=== PATIENT | female | born 1965 | race Hispanic/Latino ===

== ENCOUNTER 2019-04-09 12:33 | Emergency (ER) | payer SELFPAY ==
--- NOTE | 2019-04-09 13:43 | XRay Report ---
CHEST 1 VIEW INDICATION: sob. COMPARISON: 04/08/2016 FINDINGS: Support devices: None. Heart: Within normal limits. Pulmonary vasculature: Normal. Lungs/Pleura: The lungs are hyperexpanded and hyperlucent. Mild streaky opacities in the left lung ba se are unchanged compared to the prior exam. No airspace disease or pleural effusion. Additional findings: None. IMPRESSION: COPD and no acute cardiopulmonary process. Signer Name: Uche Reyes MD Signed: 04/09/2019 1:38 PM Workstation Name: [id number]
--- NOTE | 2019-04-09 14:08 | Emergency Department Report ---
ED Shortness of Breath HPI - General Chief Complaint: Dyspnea/Respdistress Stated Complaint: RUSSEL Time Seen by Provider: 04/09/19 13:09 Source: EMS Mode of arrival: Stretcher Limitations: No Limitations - History of Present Illness Initial Comments: 54-year-old female with history of anxiety, COPD presents to ED with shortness of breath. Patient has history of COPD, but feels that this shortness of breath secondary to anxiety attack. EMS was called, albuterol, Solu-Medrol, mag sulfate were given. Patient is chronically on 3 L O2 at home. Patient states she is still much better at this time. Complaint: shortness of breath -: This afternoon Severity: moderate Consistency: now resolved Improves With: oxygen, rest, bronchodilators Known History Of: COPD Treatments Prior to Arrival: oxygen, bronchodilator - Related Data Home Oxygen Therapy: Yes Home Oxygen Amount: 3 Liters Previous Rx's Medication Instructions Recorded Last Taken Type Albuterol Sulfate [Proventil Hfa] 2 puff IH Q4HR PRN #1 hfa.aer.ad 04/09/19 Unknown Rx predniSONE [Deltasone] 50 mg PO QDAY #5 tab 04/09/19 Unknown Rx Allergies Allergy/AdvReac Type Severity Reaction Status Date / Time clarithromycin [From Biaxin] Allergy Hives/WHELPS, Unverified 05/17/14 13:18 FEELS LIKE THROAT CLOSES UP diphenhydramine HCl Allergy Itching Unverified 04/08/16 10:37 [From Benadryl] meperidine HCl [From Demerol] Allergy Hives/ITCH Unverified 05/17/14 13:16 promethazine HCl Allergy Itching Unverified 04/08/16 10:36 [From Phenergan] ED Review of Systems ROS: Stated complaint: RUSSEL Other details as noted in HPI Comment: All other systems reviewed and negative Respiratory: shortness of breath Cardiovascular: denies: chest pain Psychiatric: anxiety ED Past Medical Hx - Past Medical History Hx Asthma: Yes Hx COPD: Yes Additional medical history: anxiety - Social History Smoking Status: Current Every Day Smoker Substance Use Type: None - Medications Home Medications: Home Medications Medication Instructions Recorded Confirmed Last Taken Type Albuterol Sulfate [Proventil Hfa] 2 puff IH Q4HR PRN #1 hfa.aer.ad 04/09/19 Unknown Rx predniSONE [Deltasone] 50 mg PO QDAY #5 tab 04/09/19 Unknown Rx ED Physical Exam - General Limitations: No Limitations General appearance: alert, in no apparent distress, other (appears frail) - Head Head exam: Present: atraumatic, normocephalic - Eye Eye exam: Present: normal appearance - ENT ENT exam: Present: mucous membranes moist - Neck Neck exam: Present: normal inspection - Respiratory Respiratory exam: Present: normal lung sounds bilaterally. Absent: respiratory distress - Cardiovascular Cardiovascular Exam: Present: regular rate, normal rhythm - GI/Abdominal GI/Abdominal exam: Present: soft. Absent: distended, tenderness - Extremities Exam Extremities exam: Present: normal inspection - Neurological Exam Neurological exam: Present: alert, oriented X3 - Psychiatric Psychiatric exam: Present: normal affect, normal mood - Skin Skin exam: Present: warm, dry, intact, normal color ED Course Vital Signs 04/09/19 04/09/19 04/09/19 12:43 12:45 12:49 Temperature 98.1 F Pulse Rate 99 H Respiratory 18 Rate Blood Pressure 122/97 125/100 Blood Pressure 125/100 [Left] O2 Sat by Pulse 93 94 Oximetry 04/09/19 04/09/19 04/09/19 13:00 13:15 13:30 Temperature Pulse Rate 96 H 101 H 106 H Respiratory 18 28 H 20 Rate Blood Pressure 120/92 120/93 122/92 Blood Pressure [Left] O2 Sat by Pulse 99 92 95 Oximetry 04/09/19 04/09/19 04/09/19 13:45 14:00 14:15 Temperature Pulse Rate 102 H 102 H 95 H Respiratory 20 25 H 20 Rate Blood Pressure 119/93 120/92 126/92 Blood Pressure [Left] O2 Sat by Pulse 92 91 91 Oximetry 04/09/19 04/09/19 04/09/19 14:30 14:45 15:00 Temperature Pulse Rate 103 H 98 H 97 H Respiratory 24 19 19 Rate Blood Pressure 127/98 123/96 130/95 Blood Pressure [Left] O2 Sat by Pulse 92 97 98 Oximetry 04/09/19 15:15 Temperature 98.4 F Pulse Rate 79 Respiratory 19 Rate Blood Pressure Blood Pressure 128/77 [Left] O2 Sat by Pulse 100 Oximetry ED Medical Decision Making - Radiology Data Radiology results: report reviewed, image reviewed - Medical Decision Making 54-year-old female with COPD exacerbation likely exacerbated by an anxiety attack. Patient received albuterol nebs, Solu-Medrol, magnesium sulfate from EMS. Upon ED arrival patient feeling much better. Patient was placed on her normal 3 L O2, patient had normal O2 sats. Chest x-ray unremarkable for any abnormal findings. Patient felt much better at this time and feels able to be discharged home. Outpatient follow-up advised. Return precautions given. - Differential Diagnosis anxiety, COPD, pneumonia Critical care attestation.: If time is entered above; I have spent that time in minutes in the direct care of this critically ill patient, excluding procedure time. ED Disposition Clinical Impression: COPD with acute exacerbation, Anxiety Disposition: TO HOME OR SELFCARE Is pt being admited?: No Condition: Stable Instructions: Chronic Obstructive Pulmonary Disease (ED), Anxiety (ED) Prescriptions: predniSONE [Deltasone] 50 mg PO QDAY #5 tab Albuterol Sulfate [Proventil Hfa] 2 puff IH Q4HR PRN #1 hfa.aer.ad PRN Reason: Wheezing Referrals: PRIMARY CARE, [Referring] - 3-5 Days Time of Disposition: 14:26
[2019-04-09 16:15] VITALS: BP 128/77
== END 2019-04-09 15:15 | disposition home or self-care (01) ==
LOC: ED 12:33
DX: J44.1 Chronic obstructive pulmonary disease with (acute) exacerbation (principal); F41.9 Anxiety disorder, unspecified; F17.200 Nicotine dependence, unspecified, uncomplicated; Z88.1 Allergy status to other antibiotic agents
CPT/HCPCS: 71045

== ENCOUNTER 2019-04-23 07:46 | Outpatient (CLI) | payer OTHER ==
[2019-04-23] MEDS ORDERED: PROVENTIL IH ONE (08:45)
== END 2019-04-23 07:47 | disposition home or self-care (01) ==
LOC: PF 07:46
PROVIDERS: ATTEND Internal Medicine
DX: J44.9 Chronic obstructive pulmonary disease, unspecified (principal)
CPT/HCPCS: 94060; 94640; 94729

== ENCOUNTER 2019-05-04 05:47 | Observation (INO) | payer SELFPAY ==
--- NOTE | 2019-05-04 07:18 | XRay Report ---
CHEST 1 VIEW INDICATION / CLINICAL INFORMATION: Dyspnea. COMPARISON: 04/09/2019 FINDINGS: SUPPORT DEVICES: None. HEART / MEDIASTINUM: No significant abnormality. LUNGS / PLEURA: Emphysema. No evidence of pneumonia. Signer Name: Thaddeus Ricardo MD Signed: 05/04/2019 7:14 AM Workstation Name: [id number]
[2019-05-04 08:04] LABS: Basophils % (Auto) 0.7 % (0.0-1.8); Eosinophils % (Auto) 0.4 % (0.0-4.3); Hematocrit 38.8 % (30.3-42.9); Hemoglobin 13.4 gm/dl (10.1-14.3); Lymphocytes # (Auto) 2.1 K/mm3 (1.2-5.4); Lymphocytes % (Auto) 37.6 % (13.4-35.0); Mean Corpuscular HGB Conc 35 % (30-34); Mean Corpuscular Volume 92 fl (79-97); Monocytes # (Auto) 0.2 K/mm3 (0.0-0.8); Monocytes % (Auto) 4.4 % (0.0-7.3); Platelet Count 288 K/mm3 (140-440); Red Blood Count 4.21 M/mm3 (3.65-5.03); Red Cell Distribution Width 13.8 % (13.2-15.2)
[2019-05-04 08:13] LABS: INR 0.97 (0.87-1.13); Partial Thromboplastin Time 29.8 Sec. (24.2-36.6)
[2019-05-04] MEDS ORDERED: IPRATROPIUM/ALBUTEROL SULFATE 3 ML AMPUL.NEB IH ONE (08:22)
[2019-05-04 08:27] LABS: BUN/Creatinine Ratio 16; Blood Urea Nitrogen 8 mg/dL (7-17); Calcium 9.1 mg/dL (8.4-10.2); Creatine Kinase MB 3.1 ng/mL (0.0-4.0); Hemolysis Index 1
[2019-05-04 08:29] LABS: Albumin 3.9 g/dL (3.9-5)
[2019-05-04 08:49] LABS: Alanine Aminotransferase < 5 units/L (7-56); Bilirubin,Direct < 0.2 mg/dL (0-0.2)
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
[2019-05-04] MEDS ORDERED: ASPIRIN 81 MG TAB CHEW PO ONE (09:34)
[2019-05-04 11:03] LABS: Amphetamine Screen,Urine PRESUMPTIVE NEGATIVE; Benzodiazepines Screen,Urine PRESUMPTIVE NEGATIVE; Cannabinoid Screen,Urine PRESUMPTIVE NEGATIVE; Cocaine Screen,Urine PRESUMPTIVE NEGATIVE; Methadone Screen,Urine PRESUMPTIVE NEGATIVE; Opiate Screen,Urine PRESUMPTIVE NEGATIVE
[2019-05-04 11:05] LABS: Bilirubin,Urine Negative (Negative); Blood,Urine Trace (Negative); Color,Urine Yellow (Yellow)
[2019-05-04 11:10] LABS: Bacteria,Urine 3+ /HPF (Negative); Mucus,Urine FEW /HPF
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
--- NOTE | 2019-05-04 11:52 | Cat Scan Report ---
CTA CHEST WITH IV CONTRAST INDICATION: cp elevated dimer. TECHNIQUE: Axial CT images were obtained through the chest after injection of IV contrast. 3 plane MIP reconstru ctions were produced. All CT scans at this location are performed using CT dose reduction for ALARA b y means of automated exposure control. COMPARISON: None available. FINDINGS: Pulmonary Arteries: No pulmonary emboli. Thoracic Aorta: No acute abnormality. Heart: Mild cardiomegaly. No pericardial effusion. Coronary Arteries: No significant calcification. Lungs: Emphysematous changes are noted. There appears to be superimposed interstitial edema. Within t he medial left lower lobe posteriorly, there is a subpleural 1.1 x 0.9 cm noncalcified nodule (axial series 3 image 160). There is a punctate 3 mm noncalcified nodule in the left lower lobe on image 223 . There is complete right middle lobe atelectasis. Pleura: No pleural effusion. No pneumothorax. Lymph Nodes: No significant adenopathy. Additional Findings: None. Upper Abdomen: No acute findings. Skeletal Structures: No significant osseous abnormality. IMPRESSION: 1. No CT evidence for pulmonary embolism. 2. Emphysematous changes are noted throughout both lungs. Increased interstitial markings suggest the re may be superimposed interstitial pulmonary edema. 3. 1.1 cm noncalcified subpleural nodular density in the medial posterior left lower lobe. See below for follow-up recommendations. 4. There is complete right middle lobe atelectasis/collapse. No definite central airway obstructing l esion is seen. If this persists on follow-up imaging, bronchoscopy should be considered. INCIDENTAL PULMONARY NODULE RECOMMENDATIONS Solid Nodule size >8 mm -- Single - Low Risk or High Risk Patient: Consider CT at 3 months, PET/CT, or tissue sampling Note These recommendations do not apply to lung cancer screening, patients with immunosuppression, o r patients with known primary cancer. Note Newly detected indeterminate nodule in persons 35 years of age or older. Persons under the age of 35 should not receive follow-up unless there is a known primary cancer. Low Risk Patient -- minimal or absent history of smoking and of other known risk factors. High Risk Patient -- history of smoking or of other known risk factors. Nodule dimensions are average of long and short axes, rounded to the nearest millimeter. Based on 2017 Fleischner Society Guidelines found in Radiology 2017 284:228-243. [email or web address] Signer Name: Vito Mattson MD Signed: 05/04/2019 11:48 AM Workstation Name: [id number]
[2019-05-04] MEDS ORDERED: ALBUTEROL 2.5 MG/3 ML NEBU IH PRN (13:11)
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
[2019-05-04] MEDS ORDERED: ALBUTEROL 2.5 MG/3 ML NEBU IH SCH (14:00)
[2019-05-04] MEDS ORDERED: IPRATROPIUM/ALBUTEROL SULFATE 3 ML AMPUL.NEB IH SCH ×2 (14:00→20:00)
[2019-05-04] MEDS ORDERED: methylPREDNISolone Sod Succinate 40 MG/1 ML INJ IV SCH (14:00)
[2019-05-04 17:08] VITALS: BP 142/96
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
[2019-05-04] MEDS ORDERED: ARFORMOTEROL 15 MCG/2 ML NEBU IH SCH (20:00)
[2019-05-04] MEDS ORDERED: BUDESONIDE 0.5 MG/2 ML NEBU IH SCH (20:00)
[2019-05-04] MEDS ORDERED: ENOXAPARIN 40 MG/0.4 ML INJ SUB-Q SCH (22:00)
[2019-05-05] MEDS ORDERED: FLU VACC QUAD 2019-20 (3 YR UP)/PF 60 MCG/0.5 ML SYRINGE IM ONE (12:00)
== END 2019-05-04 18:58 | disposition home or self-care (01) ==
LOC: ED 05:47 → 4A 09:54 → INTOOBSV 09:54
PROVIDERS: ADMIT Internal Medicine; ATTEND Internal Medicine
DX: J44.1 Chronic obstructive pulmonary disease with (acute) exacerbation (principal); R07.89 Other chest pain; E43 Unspecified severe protein-calorie malnutrition; F41.9 Anxiety disorder, unspecified; F17.200 Nicotine dependence, unspecified, uncomplicated
CPT/HCPCS: 36415; 71045; 71275; 80048; 80076; 80307; 81001; 82140; 82550; 82553; 83735; 84484; 85025; 85379; 85610; 85730; 87086; 93005; 93010; 94640; 94644; 94760; 99284; G0378; Q9967

== ENCOUNTER 2019-11-02 01:12 | Emergency (ER) | payer SELFPAY ==
[2019-11-02 01:26] VITALS: BP 112/86
== END 2019-11-02 02:25 | disposition left against medical advice (07) ==
LOC: ED 01:12
DX: R06.00 Dyspnea, unspecified (principal); Z53.21 Procedure and treatment not carried out due to patient leaving prior to being seen by health care provider

== ENCOUNTER 2019-11-27 13:10 | Emergency (ER) | payer SELFPAY | END 2019-11-27 13:37 | disposition left against medical advice (07) | LOC: ED 13:10 | DX: R11.2 Nausea with vomiting, unspecified (principal); Z53.21 Procedure and treatment not carried out due to patient leaving prior to being seen by health care provider ==

== ENCOUNTER 2019-11-28 10:16 | Emergency (ER) | payer SELFPAY ==
[2019-11-28] MEDS ORDERED: IPRATROPIUM/ALBUTEROL SULFATE 3 ML AMPUL.NEB IH ONE (11:30)
[2019-11-28] MEDS ORDERED: predniSONE 20 MG TAB PO ONE (11:30)
--- NOTE | 2019-11-28 11:35 | Emergency Department Report ---
ED Psych HPI - General Chief Complaint: Medical Clearance Stated Complaint: NOT EATING Time Seen by Provider: 11/28/19 11:29 Source: patient Mode of arrival: Wheelchair - History of Present Illness Initial Comments: Patient is a 54-year-old female that comes to the emergency room seeking treatment for her alcohol abuse. She states that she started drinking 6 months ago and since then has been drinking liquor daily. She states that her last drink was this morning. Patient is a smoker and on home oxygen. She denies drugs. She states that her brother has encouraged her to get help and that he will pay for it. Patient has no prior inpatient treatment for alcohol or mental health issues. Patient denies SI. Patient denies HI. Denies auditory or visual hallu cinations. Patient's PCP is Dr. Whitney Patient checked into the ER yesterday but left before triage. -: Gradual, month(s) Associated Psychiatric Symptoms: depression History of same: No Context: recent alcohol abuse Associated Symptoms: denies other symptoms, shortness of breath (Chronic) Treatments Prior to Arrival: none - Related Data Allergies Allergy/AdvReac Type Severity Reaction Status Date / Time clarithromycin [From Biaxin] Allergy Hives/WHELPS, Unverified 05/17/14 13:18 FEELS LIKE THROAT CLOSES UP diphenhydramine HCl Allergy Itching Unverified 04/08/16 10:37 [From Benadryl] meperidine HCl [From Demerol] Allergy Hives/ITCH Unverified 05/17/14 13:16 promethazine HCl Allergy Itching Unverified 04/08/16 10:36 [From Phenergan] ED Review of Systems ROS: Stated complaint: NOT EATING Other details as noted in HPI Comment: All other systems reviewed and negative ED Past Medical Hx - Past Medical History Previous Medical History?: Yes Hx Asthma: Yes Hx COPD: Yes Additional medical history: anxiety, history of bowel obstruction, history of ch ronic back pain - Surgical History Past Surgical History?: Yes - Family History Family history: no significant - Social History Smoking Status: Current Every Day Smoker Substance Use Type: Alcohol ED Physical Exam - General Limitations: No Limitations General appearance: alert, in no apparent distress - Head Head exam: Present: atraumatic, normocephalic - Eye Eye exam: Present: normal appearance - ENT ENT exam: Present: mucous membranes moist - Neck Neck exam: Present: normal inspection - Respiratory Respiratory exam: Present: normal lung sounds bilaterally. Absent: respiratory distress - Cardiovascular Cardiovascular Exam: Present: regular rate, normal rhythm, tachycardia, other (Barrel chest consistent with COPD). Absent: systolic murmur, diastolic murmur, rubs, gallop - GI/Abdominal GI/Abdominal exam: Present: soft, normal bowel sounds - Extremities Exam Extremities exam: Present: normal inspection - Back Exam Back exam: Present: normal inspection - Neurological Exam Neurological exam: Present: alert, oriented X3 - Psychiatric Psychiatric exam: Present: normal affect, normal mood - Skin Skin exam: Present: warm, dry, intact, normal color. Absent: rash ED Course Vital Signs 11/28/19 11/28/19 10:47 12:48 Temperature 97.5 F L Pulse Rate 98 H Respiratory 28 H 19 Rate Blood Pressure 112/90 O2 Sat by Pulse 95 Oximetry - Reevaluation(s) Reevaluation #1: 11/28/19 11:34 Home medications Home oxygen 2 L gabapentin at night Combivent inhaler Albuterol nebulizer Reevaluation #2: 11/28/19 14:09 Mental health aware of pt presentation Reevaluation #3: 11/28/19 14:17 Per Meño in mental health given pt does not have comorbid psych symptoms and no insurance pt can be discharged with psych referrals. RN aware ED Medical Decision Making - Lab Data Result diagrams: 11/28/19 12:15 11/28/19 12:15 - Radiology Data Radiology results: report reviewed, image reviewed interpreted by me: farhat dougherty - Medical Decision Making Here requesting inpatient treatment of ETOH abuse Labs 11/28/19 11/28/19 11/28/19 12:15 12:15 12:15 WBC 3.6 L RBC 4.60 Hgb 15.3 H Hct 44.5 H MCV 97 MCH 33 H MCHC 34 RDW 13.9 Plt Count 61 L Lymph % (Auto) 28.6 [place] % (Auto) 3.5 Eos % (Auto) 0.2 Baso % (Auto) 0.2 Lymph # 1.0 L [place] # 0.1 Eos # 0.0 Baso # 0.0 Seg Neutrophils % 67.5 Seg Neutrophils # 2.5 PT 11.9 L INR 0.87 Sodium 132 L Chloride 85.7 L Carbon Dioxide 24 BUN 10 Creatinine 0.3 L Estimated GFR > 60 BUN/Creatinine Ratio 33 Glucose 67 Calcium 9.1 Total Bilirubin 1.00 Alkaline Phosphatase 102 Total Protein 6.8 Albumin 4.3 Albumin/Globulin Ratio 1.7 Vital Signs 11/28/19 11/28/19 10:47 12:48 Temperature 97.5 F L Pulse Rate 98 H Respiratory 28 H 19 Rate Blood Pressure 112/90 O2 Sat by Pulse 95 Oximetry Patient was given a DuoNeb for her COPD. She has no fever, chills, shortness of breath, chest pain. She has no known exposure to viral illness. Normal vital signs on admission. Patient is on her usual 2 L nasal cannula satting 95%. I am not concerned for COVID in this patient. In fact her x-ray is not suggestive of COVID. She does not have an active infection. There is no consolidation on the x-ray. She has no purulent sputum. Labs noted. WBC normal. X-ray noted normal. Mental health exam pending Patient has been medically cleared and will be dispositioned per mental health staff. Per mental health staff given that the patient has no HI or SI/comorbid psychiatric condition and no medical insurance coverage: The patient will be discharged with medical clearance and a list of mental health resources. RN aware. On discharge patient has no SI or HI. Patient being discharged with a list of mental health resources for her alcohol abuse. - Differential Diagnosis requesting etoh rehab Critical care attestation.: If time is entered above; I have spent that time in minutes in the direct care of this critically ill patient, excluding procedure time. ED Disposition Clinical Impression: COPD (chronic obstructive pulmonary disease), Alcohol abuse Disposition: - TO HOME OR SELFCARE Is pt being admited?: No Does the pt Need Aspirin: No Condition: Stable Instructions: Chronic Obstructive Pulmonary Disease (ED) Additional Instructions: SEE ATTACHED [facility] REFERRALS YOU HAVE BEEN MEDICALLY CLEARED TO ATTEND INPATIENT OR OUTPATIENT PROGRAM THAT YOU FIND In case of an emergency, please contact the following numbers: [place] Crisis and Access Line: Number: Crisis Text Line: (Text START) Number: 281800 Suicide Prevention Line: Number: Emergency Number: 911 SUBSTANCE ABUSE PROGRAMS: [facility]! Address: [address] [place] [address] [facility]: Address: [address] [place], [place] [address] [facility]: Address: [address] [place] [address] [facility]: Address: [address] [place] [address] [facility]: Address: [address] [place] [address] Please contact above numbers to attempt placement into free based program. Referrals: TIMBO BROWNING MD [Staff Physician] - 3-5 Days Time of Disposition: 11:47
[2019-11-28] MEDS ORDERED: LORazepam 2 MG TAB PO PRN (11:38)
[2019-11-28] MEDS ORDERED: chlordiazePOXIDE 25 MG CAP PO PRN (11:38)
[2019-11-28] MEDS ORDERED: THIAMINE 100 MG, FOLIC ACID 1 MG, MULTIPLE VITAMIN INJ, ADULT 10 ML in SODIUM CHLORIDE ... IV ONE (12:00)
[2019-11-28] MEDS ORDERED: FOLIC ACID 1 MG, MULTIPLE VITAMIN INJ, ADULT 10 ML in SODIUM CHLORIDE 0.9% 1000 ML 1,00... IV ONE (12:00)
[2019-11-28] MEDS ORDERED: THIAMINE 100 MG TAB PO ONE (12:00)
[2019-11-28 12:43] LABS: Basophils % (Auto) 0.2 % (0.0-1.8); Eosinophils % (Auto) 0.2 % (0.0-4.3); Hematocrit 44.5 % (30.3-42.9); Hemoglobin 15.3 gm/dl (10.1-14.3); Lymphocytes % (Auto) 28.6 % (13.4-35.0); Mean Corpuscular HGB Conc 34 % (30-34); Mean Corpuscular Volume 97 fl (79-97); Monocytes # (Auto) 0.1 K/mm3 (0.0-0.8); Monocytes % (Auto) 3.5 % (0.0-7.3); Red Cell Distribution Width 13.9 % (13.2-15.2)
[2019-11-28 12:44] LABS: Platelet Count 61 K/mm3 (140-440)
[2019-11-28 12:53] LABS: INR 0.87 (0.87-1.13)
[2019-11-28 13:03] LABS: Albumin 4.3 g/dL (3.9-5); BUN/Creatinine Ratio 33; Blood Urea Nitrogen 10 mg/dL (7-17); Calcium 9.1 mg/dL (8.4-10.2); Hemolysis Index 126
[2019-11-28 14:36] LABS: Alanine Aminotransferase 212 units/L (7-56)
[2019-11-28 15:36] VITALS: BP 140/88
[2019-11-28 15:51] LABS: Bilirubin,Urine NEG (Negative); Blood,Urine SM (Negative); Color,Urine Yellow (Yellow); Mucus,Urine FEW /HPF; Urobilinogen,Urine < 2.0 mg/dL (<2.0)
[2019-11-28 15:59] LABS: Amphetamine Screen,Urine PRESUMPTIVE NEGATIVE; Benzodiazepines Screen,Urine PRESUMPTIVE NEGATIVE; Cannabinoid Screen,Urine PRESUMPTIVE NEGATIVE; Cocaine Screen,Urine PRESUMPTIVE NEGATIVE; Methadone Screen,Urine PRESUMPTIVE NEGATIVE; Opiate Screen,Urine PRESUMPTIVE NEGATIVE
[2019-11-28 16:02] LABS: HCG Qualitative,Urine Negative (Negative)
== END 2019-11-28 15:20 | disposition home or self-care (01) ==
LOC: ED 10:16
DX: J44.9 Chronic obstructive pulmonary disease, unspecified (principal); F10.10 Alcohol abuse, uncomplicated; F41.9 Anxiety disorder, unspecified; F17.200 Nicotine dependence, unspecified, uncomplicated; Z79.899 Other long term (current) drug therapy; Z88.8 Allergy status to other drugs, medicaments and biological substances; Z98.890 Other specified postprocedural states
CPT/HCPCS: 36415; 71046; 80053; 80307; 81001; 81025; 85025; 85610; 94640; 96365; 96366; 99284; J3411; J7030; J7512; 80320; G0480